=== PATIENT | male | born 1965 | race Hispanic/Latino ===

== ENCOUNTER 2019-12-15 09:46 | Emergency (ER) | payer SELFPAY ==
[2019-12-15] MEDS ORDERED: chlordiazePOXIDE 25 MG CAP PO PRN (12:37)
[2019-12-15] MEDS ORDERED: LORazepam 2 MG/ML VIAL IV STA (12:37)
[2019-12-15] MEDS ORDERED: LORazepam 2 MG/ML VIAL IV PRN ×3 (12:37)
--- NOTE | 2019-12-15 12:45 | Emergency Department Report ---
ED General Adult HPI - General Chief complaint: High BP Stated complaint: HIGH BLOOD PRESSURE Time Seen by Provider: 12/15/19 12:30 Source: patient, RN notes reviewed Mode of arrival: Ambulatory Limitations: No Limitations - History of Present Illness Initial comments: The patient is a 54-year-old gentleman. He believes he has a history of diabetes, and high blood pressure. He sees a local primary care doctor but cannot recall their name. He does not think that he takes prescription medication. He presents to the ER with a complaint of high blood pressure, anxiety, malaise, fatigue, weakness, and feeling dizzy. He clarifies dizzy as a sensation of feeling jittery and anxious. He has no physical pain at this time. He denies DVT and pulmonary embolism risk factors. He does not use illegal drugs, but he does consume alcohol a few times a week. He does not believe he's ever had alcohol withdrawal, or alcohol withdrawal seizure. -: Gradual Consistency: intermittent Improves with: medication, rest Worsens with: none - Related Data Previous Rx's Medication Instructions Recorded Last Taken Type Multivitamin with Folic Acid [[facility] 400 mcg PO QDAY #30 tablet 12/15/19 Unknown Rx One Daily Essential Tablet] chlordiazePOXIDE [Librium] 25 mg PO Q6H PRN #25 capsule 12/15/19 Unknown Rx Allergies Allergy/AdvReac Type Severity Reaction Status Date / Time No Known Allergies Allergy Unverified 12/15/19 12:41 ED Review of Systems ROS: Stated complaint: HIGH BLOOD PRESSURE Other details as noted in HPI Constitutional: malaise. denies: fever Eyes: denies: eye discharge ENT: denies: congestion Respiratory: cough Cardiovascular: denies: chest pain, syncope Gastrointestinal: denies: abdominal pain, nausea, vomiting Genitourinary: denies: dysuria Musculoskeletal: denies: back pain Skin: denies: lesions Neurological: weakness Psychiatric: anxiety Hematological/Lymphatic: denies: easy bleeding ED Past Medical Hx - Past Medical History Previous Medical History?: Yes Hx Hypertension: Yes (not on meds) Hx Diabetes: Yes (not on meds) - Surgical History Past Surgical History?: No - Social History Smoking Status: Never Smoker Substance Use Type: Alcohol, Marijuana - Medications Home Medications: Home Medications Medication Instructions Recorded Confirmed Last Taken Type Multivitamin with Folic Acid [[facility] 400 mcg PO QDAY #30 tablet 12/15/19 Unknown Rx One Daily Essential Tablet] chlordiazePOXIDE [Librium] 25 mg PO Q6H PRN #25 capsule 12/15/19 Unknown Rx ED Physical Exam - General Limitations: No Limitations General appearance: alert, anxious - Head Head exam: Present: atraumatic, normocephalic - Eye Eye exam: Present: normal appearance, EOMI. Absent: nystagmus - ENT ENT exam: Present: normal orophraynx, normal external ear exam, other (tongue fasciculations noted) - Neck Neck exam: Present: normal inspection, full ROM. Absent: tenderness, meningismus - Respiratory Respiratory exam: Present: normal lung sounds bilaterally. Absent: respiratory distress - Cardiovascular Cardiovascular Exam: Present: regular rate, normal rhythm, normal heart sounds. Absent: bradycardia, tachycardia, irregular rhythm, systolic murmur, diastolic murmur, rubs, gallop - GI/Abdominal GI/Abdominal exam: Present: soft. Absent: distended, tenderness, guarding, javier ound, rigid, pulsatile mass - Rectal Rectal exam: Present: deferred - Extremities Exam Extremities exam: Present: normal inspection, full ROM, other (2+ pulses noted in the bilateral upper and lower extremities. There is no long bony tenderness. The pelvis is stable. The muscular compartments are soft. There is no pa lpable cord.). Absent: pedal edema, joint swelling, calf tenderness - Back Exam Back exam: Present: normal inspection, full ROM. Absent: tenderness, CVA tender ness (R), CVA tenderness (L), paraspinal tenderness, vertebral tenderness - Neurological Exam Neurological exam: Present: alert, oriented X3, normal gait (The extraocular movements are intact bilaterally. There is no facial droop. The tongue is midline. Phonating in normal sentences. Hearing is intact grossly. Walking with a steady gait. 5/5 strength with 4 extremities. Sensation intact to light touch in 4 extremities. Appropriate thought content. GCS 15.), other (there is no past-pointing. There is normal [id number]. There is no pronator dri ft.). Absent: motor sensory deficit - Psychiatric Psychiatric exam: Present: anxious. Absent: homicidal ideation, suicidal ideation - Skin Skin exam: Present: warm, dry, intact, normal color. Absent: rash ED Course Vital Signs 01/22/20 10:23 Temperature 98.3 F Pulse Rate 97 H Respiratory 18 Rate Blood Pressure 182/105 O2 Sat by Pulse 96 Oximetry ED Medical Decision Making - Lab Data Result diagrams: 12/15/19 13:25 12/15/19 13:25 Vital Signs 12/15/19 12/15/19 10:23 14:21 Temperature 98.3 F Pulse Rate 97 H 90 Respiratory 18 21 Rate Blood Pressure 182/105 Blood Pressure 171/102 [Left] O2 Sat by Pulse 96 97 Oximetry Lab Results 12/15/19 12/15/19 12/15/19 Range/Units 13:25 13:25 13:25 WBC 9.6 (4.5-11.0) K/mm3 RBC 4.67 (3.65-5.03) M/mm3 Hgb 15.9 H (11.8-15.2) gm/dl Hct 44.6 (35.5-45.6) % MCV 95 H (84-94) fl MCH 34 H (28-32) pg MCHC 36 H (32-34) % RDW 14.0 (13.2-15.2) % Plt Count 214 (140-440) K/mm3 Sodium 139 (137-145) mmol/L Potassium 3.6 (3.6-5.0) mmol/L Chloride 97.2 L (98-107) mmol/L Carbon Dioxide 22 (22-30) mmol/L Anion Gap 23 mmol/L BUN 14 (9-20) mg/dL Creatinine 0.7 L (0.8-1.5) mg/dL Estimated GFR > 60 ml/min BUN/Creatinine Ratio 20 % Glucose 143 H (75-100) mg/dL Calcium 9.6 (8.4-10.2) mg/dL Magnesium 1.90 (1.7-2.3) mg/dL Total Bilirubin 0.60 (0.1-1.2) mg/dL AST 112 H (5-40) units/L ALT 145 H (7-56) units/L Alkaline Phosphatase 94 (35-129) units/L Total Creatine Kinase 322 H (55-170) units/L Total Protein 7.3 (6.3-8.2) g/dL Albumin 4.3 (3.9-5) g/dL Albumin/Globulin Ratio 1.4 % TSH (0.270-4.200) mlU/mL Salicylates (2.8-20.0) mg/dL Acetaminophen (10.0-30.0) ug/mL Plasma/Serum Alcohol (0-0.07) % 12/15/19 12/15/19 12/15/19 Range/Units 13:25 13:25 13:25 WBC (4.5-11.0) K/mm3 RBC (3.65-5.03) M/mm3 Hgb (11.8-15.2) gm/dl Hct (35.5-45.6) % MCV (84-94) fl MCH (28-32) pg MCHC (32-34) % RDW (13.2-15.2) % Plt Count (140-440) K/mm3 Sodium (137-145) mmol/L Potassium (3.6-5.0) mmol/L Chloride (98-107) mmol/L Carbon Dioxide (22-30) mmol/L Anion Gap mmol/L BUN (9-20) mg/dL Creatinine (0.8-1.5) mg/dL Estimated GFR ml/min BUN/Creatinine Ratio % Glucose (75-100) mg/dL Calcium (8.4-10.2) mg/dL Magnesium (1.7-2.3) mg/dL Total Bilirubin (0.1-1.2) mg/dL AST (5-40) units/L ALT (7-56) units/L Alkaline Phosphatase (35-129) units/L Total Creatine Kinase (55-170) units/L Total Protein (6.3-8.2) g/dL Albumin (3.9-5) g/dL Albumin/Globulin Ratio % TSH 3.880 (0.270-4.200) mlU/mL Salicylates < 0.3 L (2.8-20.0) mg/dL Acetaminophen < 5.0 L (10.0-30.0) ug/mL Plasma/Serum Alcohol (0-0.07) % 12/15/19 Range/Units 13:25 WBC (4.5-11.0) K/mm3 RBC (3.65-5.03) M/mm3 Hgb (11.8-15.2) gm/dl Hct (35.5-45.6) % MCV (84-94) fl MCH (28-32) pg MCHC (32-34) % RDW (13.2-15.2) % Plt Count (140-440) K/mm3 Sodium (137-145) mmol/L Potassium (3.6-5.0) mmol/L Chloride (98-107) mmol/L Carbon Dioxide (22-30) mmol/L Anion Gap mmol/L BUN (9-20) mg/dL Creatinine (0.8-1.5) mg/dL Estimated GFR ml/min BUN/Creatinine Ratio % Glucose (75-100) mg/dL Calcium (8.4-10.2) mg/dL Magnesium (1.7-2.3) mg/dL Total Bilirubin (0.1-1.2) mg/dL AST (5-40) units/L ALT (7-56) units/L Alkaline Phosphatase (35-129) units/L Total Creatine Kinase (55-170) units/L Total Protein (6.3-8.2) g/dL Albumin (3.9-5) g/dL Albumin/Globulin Ratio % TSH (0.270-4.200) mlU/mL Salicylates (2.8-20.0) mg/dL Acetaminophen (10.0-30.0) ug/mL Plasma/Serum Alcohol < 0.01 (0-0.07) % - EKG Data -: EKG Interpreted by Ma EKG shows normal: sinus rhythm Rate: normal - EKG Data 12/15/19 14:24 There is no prior EKG available for comparison. The EKG shows a sinus rhythm, 93 bpm, QTC is prolonged, low voltage, motion artifact, there is no endorsement of chest pain, the EKG is not consistent with ST elevation myocardial infarction. - Radiology Data Radiology results: pending, report reviewed, image reviewed X-ray of the chest is negative for disease - Medical Decision Making Differential diagnosis, including not limited to: Anxiety, hypertension, alcohol dependence, alcohol withdrawal, dehydration, electrolyte derangement Assessment and plan: 54-year-old gentleman, with no DVT or pulmonary embolism risk factors, low risk by well's criteria, with tremulousness, tongue fasciculations, mild anxiety, possible alcohol withdrawal versus anxiety versus dehydration He is clinically sober with a GCS of 15. He felt improved after IV fluids and benzodiazepines. EKG is reviewed and appreciated, along with chest x-ray, and screening laboratory studies. The patient can follow up with an outpatient primary care doctor for elevated blood pressure, he does not meet criteria for hospitalization for alcohol dependence or alcohol withdrawal. Multivitamin with thiamine will be started, as the Librium will be prescribed. First line treatment for hypertension includes diet, exercise, lifestyle modifications. Discussed this with the patient. Critical care attestation.: If time is entered above; I have spent that time in minutes in the direct care of this critically ill patient, excluding procedure time. ED Disposition Clinical Impression: Elevated blood pressure reading Disposition: DC-01 TO HOME OR SELFCARE Is pt being admited?: No Does the pt Need Aspirin: No Condition: Stable Additional Instructions: Rest, avoid heavy lifting, participate in physical activities as tolerated. Recommend weight loss, decrease alcohol consumption and utilization, exercises tolerated, modified diet to avoid consumption of sugar, alcohol, simple carbohydrates. Recommend the patient drink 4-6 cups of water per day, eat plenty of fiber, vegetables, lean protein. Take a multivitamin as prescribed, use Librium medication as needed for sensation of alcohol dependence, alcohol withdrawal, shakes, and jitters. Please follow up with her primary care doctor within the next 4-6 weeks. Long-term complications of hypertension and elevated blood pressure includes stroke, heart attack, disability, paralysis, loss of quality of life. Return to emergency room right away with projectile vomiting, change in mental status, confusion, inability to tolerate liquid feeds, new, worsening or different symptoms not present on initial emergency room evaluation. Referrals: [facility] [Provider Group] - 3-5 Days [facility] [Provider Group] - 3-5 Days JERSON KO MD [Staff Physician] - 3-5 Days
[2019-12-15] MEDS ORDERED: D5W/0.45% NACL 1,000 ML IV SCH (13:00)
[2019-12-15 13:45] LABS: Hematocrit 44.6 % (35.5-45.6); Hemoglobin 15.9 gm/dl (11.8-15.2); Mean Corpuscular HGB Conc 36 % (32-34); Mean Corpuscular Volume 95 fl (84-94); Platelet Count 214 K/mm3 (140-440); Red Blood Count 4.67 M/mm3 (3.65-5.03)
--- NOTE | 2019-12-15 13:53 | XRay Report ---
CHEST 1 VIEW 12/15/2019 12:41 PM INDICATION / CLINICAL INFORMATION: Cough. Weakness. COMPARISON: None available. FINDINGS: SUPPORT DEVICES: None. HEART / MEDIASTINUM: No significant abnormality. LUNGS / PLEURA: No significant pulmonary or pleural abnormality. No pneumothorax. ADDITIONAL FINDINGS: No significant additional findings. IMPRESSION: 1. No acute abnormality of the chest. Signer Name: Anuel Palomino MD Signed: 12/15/2019 1:46 PM Workstation Name: [id number]
[2019-12-15 14:09] LABS: Alanine Aminotransferase 145 units/L (7-56); Albumin 4.3 g/dL (3.9-5); BUN/Creatinine Ratio 20; Blood Urea Nitrogen 14 mg/dL (9-20); Calcium 9.6 mg/dL (8.4-10.2); Hemolysis Index 6
[2019-12-15 14:22] VITALS: BP 171/102
== END 2019-12-15 15:13 | disposition home or self-care (01) ==
LOC: ED 09:46
DX: I10 Essential (primary) hypertension (principal); R42 Dizziness and giddiness; E11.9 Type 2 diabetes mellitus without complications; F10.10 Alcohol abuse, uncomplicated; F12.10 Cannabis abuse, uncomplicated; Z79.899 Other long term (current) drug therapy
CPT/HCPCS: 36415; 71045; 80053; 82550; 83735; 84443; 85027; 93005; 93010; 96361; 96374; 99284; J2060; 80320; G0480